=== PATIENT | female | born 1940 | race Caucasian/White ===

== ENCOUNTER 2018-04-02 11:13 | Inpatient (IN) | payer OTHER ==
[~2018-04-02] VITALS: Ht 157.5 cm; Wt 64.8 kg
[2018-04-02] MEDS ORDERED: methylPREDNISolone SOD SUCC 125 MG/2 ML VL IV ONE (11:45)
[2018-04-02] MEDS ORDERED: IPRATROPIUM BROM 0.5 MG/2.5ML INH SOL NEB ONE (11:45)
[2018-04-02] MEDS ORDERED: ALBUTEROL SULF 2.5 MG/0.5ML(0.5%) NEB SOLN NEB ONE (11:45)
[2018-04-02 11:58] LABS: Eosinophils # (auto) 0.2 uL; Lymphocytes # (auto) 2.6 uL; Monocytes # (auto) 1.5 uL
[2018-04-02 12:00] LABS: Basophils # (auto) 0 uL; Basophils % (auto) 0.2 % (0.0-2.0); Eosinophils % (auto) 1.2 % (0.0-7.0); Hematocrit 42.2 % (36.0-46.0); Hemoglobin 13.6 g/dL (12.2-16.2); Lymphocytes % (auto) 14.3 % (10.0-50.0); Mean Corpuscular Hemoglobin 27.1 pg (28.0-32.0); Mean Corpuscular Hgb Conc. 32.3 g/dL (32.0-36.0); Mean Corpuscular Volume 83.8 fL (80.0-100.0); Monocytes % (auto) 8.1 % (0.0-12.0); Neutrophils # (auto) 13.8 uL; Neutrophils % (auto) 76.2 % (37.0-80.0); Platelet Count (auto) 657 10^3/uL (140-450); Red Blood Cells 5.04 10^6/uL (4.0-5.20); Red Cell Distribution Width 17.3 % (11.8-14.3); White Blood Cell 18.2 10^3/uL (4.4-10.8)
[2018-04-02 12:17] LABS: INR 1.01 (0.9-1.15); Partial Thromboplastin Time 25.8 sec (23.78-33.04); Prothrombin Time 10.8 sec (9.27-12.13)
[2018-04-02 12:26] LABS: Albumin 2.6 g/dL (3.4-5.0); BUN/Creatinine Ratio 10.9; Bilirubin, Total 0.5 mg/dL (0.2-1.0); Calcium 8.5 mg/dL (8.5-10.1); Potassium 3.7 mmol/L (3.5-5.1); Total Protein 8.2 g/dL (6.4-8.2)
[2018-04-02] MEDS ORDERED: SODIUM CHLORIDE 0.9% 1,000 ML IV ONE (13:22)
[2018-04-02] MEDS ORDERED: ENOXAPARIN SOD 60 MG/0.6 ML SYRINGE SC ONE (13:30)
[2018-04-02] MEDS ORDERED: LEVOFLOXACIN 500MG 100 ML IV ONE (13:30)
[2018-04-02] MEDS ORDERED: SODIUM CHLORIDE 0.9% 1,000 ML IV SCH (13:37)
[2018-04-02] MEDS ORDERED: ACETAMINOPHEN 500 MG TAB PO PRN (13:45)
[2018-04-02] MEDS ORDERED: HYDROcodone-ACET 5/325MG TAB PO PRN (13:45)
[2018-04-02] MEDS ORDERED: NITROGLYCERIN 0.4 MG SL TAB SL PRN (13:45)
[2018-04-02] MEDS ORDERED: MORPHINE SULF INJ 2 MG/ML SYRINGE 1ML IV PRN ×2 (13:45)
[2018-04-02] MEDS ORDERED: LACTULOSE 20Gm/30ML SOLN PO PRN (13:45)
[2018-04-02] MEDS ORDERED: LORazepam 0.5 MG TAB PO PRN (13:45)
[2018-04-02] MEDS ORDERED: ALBUTEROL SULF 2.5 MG/0.5ML(0.5%) NEB SOLN NEB PRN (13:45)
[2018-04-02] MEDS: methylPREDNISolone SOD SUCC 40 MG/ML VL IV SCH (14:13)
[2018-04-02] MEDS: CLINDAMYCIN 600MG IV 50 ML IV SCH ×2 (15:00→21:03)
[2018-04-02 15:30] VITALS: BP 121/69
[2018-04-02 16:00] VITALS: BP 121/69
[2018-04-02] MEDS ORDERED: LEVO50TA7 PO (16:42)
[2018-04-02] MEDS ORDERED: PRE1T PO (16:42)
[2018-04-02 19:49] VITALS: BP 130/79
[2018-04-02] MEDS: SODIUM CHLORIDE 0.9% 1,000 ML IV SCH (19:51)
[2018-04-02] MEDS: IPRATROPIUM BROM 0.5 MG/2.5ML INH SOL NEB SCH (20:28)
[2018-04-02] MEDS: ALBUTEROL SULF 2.5 MG/0.5ML(0.5%) NEB SOLN NEB SCH (20:28)
[2018-04-02] MEDS: CARVEDILOL 3.125 MG TAB PO SCH (21:03)
[2018-04-03] VITALS (7 sets, daily range): BP systolic 116–147; BP diastolic 67–81
[2018-04-03 00:15] LABS: Urine Bacteria FEW /hpf (None Seen); Urine Blood Negative /uL (Negative); Urine Hyaline Cast MANY /lpf (0 - 2); Urine Mucus FEW (None Seen); Urine Specific Gravity 1.027 (1.001-1.035); Urine WBC 5 /hpf (0 - 5)
[2018-04-03] MEDS: ALBUTEROL SULF 2.5 MG/0.5ML(0.5%) NEB SOLN NEB SCH ×4 (01:39→18:45)
[2018-04-03] MEDS: IPRATROPIUM BROM 0.5 MG/2.5ML INH SOL NEB SCH ×4 (01:39→18:45)
[2018-04-03] MEDS: methylPREDNISolone SOD SUCC 40 MG/ML VL IV SCH ×2 (02:34→12:25)
[2018-04-03] MEDS: CLINDAMYCIN 600MG IV 50 ML IV SCH ×3 (05:34→21:43)
[2018-04-03] MEDS: LEVOTHYROXINE SODIUM 25 MCG TAB PO SCH (05:35)
[2018-04-03 05:43] LABS: Basophils # (auto) 0 uL; Eosinophils # (auto) 0 uL; Lymphocytes # (auto) 0.8 uL; Monocytes # (auto) 0.3 uL
[2018-04-03 05:46] LABS: Basophils % (auto) 0.2 % (0.0-2.0); Hematocrit 35.6 % (36.0-46.0); Hemoglobin 11.5 g/dL (12.2-16.2); Lymphocytes % (auto) 5.5 % (10.0-50.0); Mean Corpuscular Hemoglobin 26.7 pg (28.0-32.0); Mean Corpuscular Hgb Conc. 32.3 g/dL (32.0-36.0); Mean Corpuscular Volume 82.6 fL (80.0-100.0); Monocytes % (auto) 2.3 % (0.0-12.0); Neutrophils # (auto) 13.7 uL; Platelet Count (auto) 553 10^3/uL (140-450); Red Blood Cells 4.31 10^6/uL (4.0-5.20); Red Cell Distribution Width 17.2 % (11.8-14.3); White Blood Cell 14.9 10^3/uL (4.4-10.8)
[2018-04-03 06:24] LABS: Albumin 2.2 g/dL (3.4-5.0); BUN/Creatinine Ratio 20.8; Bilirubin, Total 0.4 mg/dL (0.2-1.0); Calcium 8.6 mg/dL (8.5-10.1); Potassium 4.6 mmol/L (3.5-5.1); Total Protein 6.9 g/dL (6.4-8.2)
[2018-04-03] MEDS: SODIUM CHLORIDE 0.9% 1,000 ML IV SCH ×2 (09:25→23:23)
[2018-04-03] MEDS ORDERED: LEVOFLOXACIN 500MG 100 ML IV SCH (10:00)
[2018-04-03] MEDS ORDERED: LEVOFLOXACIN 250MG 50 ML IV SCH (10:00)
[2018-04-03] MEDS ORDERED: ENOXAPARIN SOD 40 MG/0.4 ML SYRINGE SC SCH (10:00)
[2018-04-03] MEDS ORDERED: PANTOPRAZOLE 40 MG TAB PO SCH (10:00)
[2018-04-03] MEDS: PANTOPRAZOLE 40 MG TAB PO SCH ×2 (10:56→21:43)
[2018-04-03] MEDS: CARVEDILOL 3.125 MG TAB PO SCH ×2 (11:08→21:43)
[2018-04-03 12:06] LABS: Hemoglobin 11.4 g/dL (12.2-16.2)
[2018-04-03 12:09] LABS: Hematocrit 35.8 % (36.0-46.0)
[2018-04-03 18:43] LABS: Hemoglobin 11.7 g/dL (12.2-16.2)
[2018-04-03 18:45] LABS: Hematocrit 36.7 % (36.0-46.0)
[2018-04-03] MEDS: ATORVASTATIN 20 MG TAB PO SCH (21:43)
[2018-04-03 23:29] LABS: Hematocrit 33.6 % (36.0-46.0); Hemoglobin 10.6 g/dL (12.2-16.2)
[2018-04-04] MEDS: methylPREDNISolone SOD SUCC 40 MG/ML VL IV SCH ×2 (00:27→13:45)
[2018-04-04] MEDS: ALBUTEROL SULF 2.5 MG/0.5ML(0.5%) NEB SOLN NEB SCH ×4 (00:28→18:14)
[2018-04-04] MEDS: IPRATROPIUM BROM 0.5 MG/2.5ML INH SOL NEB SCH ×4 (00:28→18:14)
[2018-04-04 04:16] VITALS: BP 140/64
[2018-04-04] MEDS: CLINDAMYCIN 600MG IV 50 ML IV SCH (06:14)
[2018-04-04] MEDS: LEVOTHYROXINE SODIUM 25 MCG TAB PO SCH (06:15)
[2018-04-04] MEDS: PROMETHAZINE HCL 25 MG/ML 1ML IV PRN ×2 (06:48→22:23)
[2018-04-04 07:07] LABS: Hematocrit 36.1 % (36.0-46.0); Hemoglobin 11.2 g/dL (12.2-16.2); Mean Corpuscular Hemoglobin 26.1 pg (28.0-32.0); Mean Corpuscular Hgb Conc. 31.1 g/dL (32.0-36.0); Mean Corpuscular Volume 83.8 fL (80.0-100.0); Platelet Count (auto) 572 10^3/uL (140-450); White Blood Cell 23.9 10^3/uL (4.4-10.8)
[2018-04-04 07:09] LABS: BUN/Creatinine Ratio 26.3; Basophils % (manual) 0 (0.0-2.0); Blast Cells 0; Calcium 8.2 mg/dL (8.5-10.1); Eosinophils % (manual) 0 (0-7); Metamyelocytes % 0; Myelocytes % 0; Potassium 4.7 mmol/L (3.5-5.1); Promyelocytes % 0; Reactive Lymphocytes 0
[2018-04-04 07:12] LABS: Bilirubin, Total 0.2 mg/dL (0.2-1.0); Total Protein 6.3 g/dL (6.4-8.2)
[2018-04-04 08:00] VITALS: BP 146/58
[2018-04-04 08:18] LABS: Band Neutrophils % (manual) 2
[2018-04-04 08:19] LABS: Lymphocytes % (manual) 3 (10.0-50.0); Monocytes % (manual) 3 (0-12)
[2018-04-04] MEDS ORDERED: VANCOMYCIN PER PHARMACY 0 MG IV SCH (08:45)
[2018-04-04] MEDS: PANTOPRAZOLE 40 MG TAB PO SCH ×2 (09:11→22:22)
[2018-04-04] MEDS: CARVEDILOL 3.125 MG TAB PO SCH ×2 (09:11→22:21)
[2018-04-04] MEDS: VANCOMYCIN 1GM/250ML 250 ML IV SCH (09:19)
[2018-04-04] MEDS: MEROPENEM 1gm/20ml IVPUSH 20 ML IV SCH ×2 (09:38→22:21)
[2018-04-04] MEDS: AZITHROMYCIN 500MG/ 250ML 250 ML IV SCH (11:03)
[2018-04-04 12:00] VITALS: BP 124/61
[2018-04-04] MEDS: SODIUM CHLORIDE 0.9% 1,000 ML IV SCH ×2 (12:05→18:43)
[2018-04-04 16:00] VITALS: BP 129/64
[2018-04-04 20:00] VITALS: BP 134/67
[2018-04-04] MEDS: ATORVASTATIN 20 MG TAB PO SCH (22:21)
[2018-04-04] MEDS: TEMAZEPAM 15 MG CAP PO PRN (23:14)
[2018-04-05] VITALS (13 sets, daily range): BP systolic 121–199; BP diastolic 73–110
[2018-04-05] MEDS: IPRATROPIUM BROM 0.5 MG/2.5ML INH SOL NEB SCH ×4 (00:10→19:24)
[2018-04-05] MEDS: ALBUTEROL SULF 2.5 MG/0.5ML(0.5%) NEB SOLN NEB SCH ×4 (00:10→19:24)
[2018-04-05] MEDS ORDERED: LABETALOL HCL 5 MG/ML ML 20ML VIAL IV ONE (01:30)
[2018-04-05] MEDS: methylPREDNISolone SOD SUCC 40 MG/ML VL IV SCH (01:54)
[2018-04-05 05:15] LABS: Eosinophils # (auto) 0 uL; Monocytes # (auto) 0.7 uL
[2018-04-05 05:17] LABS: Basophils # (auto) 0.1 uL; Basophils % (auto) 0.3 % (0.0-2.0); Hematocrit 36.6 % (36.0-46.0); Hemoglobin 11.8 g/dL (12.2-16.2); Lymphocytes # (auto) 0.5 uL; Lymphocytes % (auto) 2.5 % (10.0-50.0); Mean Corpuscular Hemoglobin 26.8 pg (28.0-32.0); Mean Corpuscular Hgb Conc. 32.2 g/dL (32.0-36.0); Mean Corpuscular Volume 83.3 fL (80.0-100.0); Neutrophils # (auto) 20.8 uL; Neutrophils % (auto) 94.2 % (37.0-80.0); Platelet Count (auto) 602 10^3/uL (140-450); Red Blood Cells 4.39 10^6/uL (4.0-5.20); Red Cell Distribution Width 17.1 % (11.8-14.3); White Blood Cell 22.1 10^3/uL (4.4-10.8)
[2018-04-05 05:35] LABS: Calcium 8.4 mg/dL (8.5-10.1); Potassium 4.4 mmol/L (3.5-5.1)
[2018-04-05] MEDS: LEVOTHYROXINE SODIUM 25 MCG TAB PO SCH (06:36)
[2018-04-05] MEDS: PROMETHAZINE HCL 25 MG/ML 1ML IV PRN (06:37)
[2018-04-05] MEDS: AZITHROMYCIN 500MG/ 250ML 250 ML IV SCH (09:18)
[2018-04-05] MEDS: MEROPENEM 1gm/20ml IVPUSH 20 ML IV SCH (10:52)
[2018-04-05] MEDS: VANCOMYCIN 1GM/250ML 250 ML IV SCH (10:52)
[2018-04-05] MEDS: PANTOPRAZOLE 40 MG TAB PO SCH ×2 (10:53→21:11)
[2018-04-05] MEDS: CARVEDILOL 3.125 MG TAB PO SCH ×2 (11:02→21:12)
[2018-04-05] MEDS ORDERED: FLUCONAZOLE 200MG/100ML 100 ML IV ONE (12:15)
[2018-04-05] MEDS: DOXYCYCLINE 100MG/250ML 250 ML IV SCH (13:55)
[2018-04-05] MEDS: ATORVASTATIN 20 MG TAB PO SCH (21:11)
[2018-04-06] VITALS (7 sets, daily range): BP systolic 130–166; BP diastolic 68–79
[2018-04-06] MEDS: IPRATROPIUM BROM 0.5 MG/2.5ML INH SOL NEB SCH ×4 (00:39→18:57)
[2018-04-06] MEDS: ALBUTEROL SULF 2.5 MG/0.5ML(0.5%) NEB SOLN NEB SCH ×4 (00:39→18:57)
[2018-04-06] MEDS: DOXYCYCLINE 100MG/250ML 250 ML IV SCH ×2 (01:29→12:52)
[2018-04-06 05:27] LABS: Basophils # (auto) 0.1 uL; Eosinophils # (auto) 0.1 uL; Hemoglobin 12.1 g/dL (12.2-16.2); Lymphocytes # (auto) 1.7 uL; Neutrophils % (auto) 75.9 % (37.0-80.0)
[2018-04-06 05:34] LABS: Basophils % (auto) 0.6 % (0.0-2.0); Eosinophils % (auto) 0.9 % (0.0-7.0); Hematocrit 37.9 % (36.0-46.0); Lymphocytes % (auto) 11.7 % (10.0-50.0); Mean Corpuscular Hemoglobin 26.5 pg (28.0-32.0); Mean Corpuscular Hgb Conc. 31.9 g/dL (32.0-36.0); Monocytes # (auto) 1.6 uL; Monocytes % (auto) 10.9 % (0.0-12.0); Neutrophils # (auto) 10.9 uL; Platelet Count (auto) 585 10^3/uL (140-450); Red Blood Cells 4.56 10^6/uL (4.0-5.20); Red Cell Distribution Width 16.9 % (11.8-14.3); White Blood Cell 14.3 10^3/uL (4.4-10.8)
[2018-04-06 05:46] LABS: BUN/Creatinine Ratio 26.1; Calcium 8.2 mg/dL (8.5-10.1); Potassium 4.4 mmol/L (3.5-5.1)
[2018-04-06] MEDS: LEVOTHYROXINE SODIUM 25 MCG TAB PO SCH (06:48)
[2018-04-06] MEDS ORDERED: ADENOSINE 53 MG in GIVE UN-DILUTED 0 ML IV STA (08:34)
[2018-04-06] MEDS: FLUCONAZOLE 200MG/100ML 100 ML IV SCH (12:12)
[2018-04-06] MEDS: predniSONE 20 MG TAB PO SCH (12:12)
[2018-04-06] MEDS: CARVEDILOL 3.125 MG TAB PO SCH ×2 (12:13→21:34)
[2018-04-06] MEDS: PANTOPRAZOLE 40 MG TAB PO SCH ×2 (12:13→21:35)
[2018-04-06] MEDS: PROMETHAZINE HCL 25 MG/ML 1ML IV PRN (12:50)
[2018-04-06] MEDS: ATORVASTATIN 20 MG TAB PO SCH (21:35)
[2018-04-07] VITALS (7 sets, daily range): BP systolic 131–165; BP diastolic 65–100
[2018-04-07] MEDS: IPRATROPIUM BROM 0.5 MG/2.5ML INH SOL NEB SCH ×4 (00:39→19:07)
[2018-04-07] MEDS: ALBUTEROL SULF 2.5 MG/0.5ML(0.5%) NEB SOLN NEB SCH ×4 (00:39→19:07)
[2018-04-07] MEDS: DOXYCYCLINE 100MG/250ML 250 ML IV SCH (01:42)
[2018-04-07] MEDS: LEVOTHYROXINE SODIUM 25 MCG TAB PO SCH (06:13)
[2018-04-07 06:35] LABS: Hemoglobin 11.9 g/dL (12.2-16.2); White Blood Cell 15.2 10^3/uL (4.4-10.8)
[2018-04-07 06:39] LABS: Hematocrit 37.4 % (36.0-46.0); Mean Corpuscular Hemoglobin 26.4 pg (28.0-32.0); Mean Corpuscular Hgb Conc. 31.9 g/dL (32.0-36.0); Platelet Count (auto) 565 10^3/uL (140-450); Red Blood Cells 4.51 10^6/uL (4.0-5.20); Red Cell Distribution Width 16.3 % (11.8-14.3)
[2018-04-07 06:52] LABS: BUN/Creatinine Ratio 31.4; Basophils % (manual) 0 (0.0-2.0); Blast Cells 0; Calcium 8.3 mg/dL (8.5-10.1); Eosinophils % (manual) 0 (0-7); Metamyelocytes % 0; Myelocytes % 0; Potassium 4.2 mmol/L (3.5-5.1); Promyelocytes % 0; Reactive Lymphocytes 0
[2018-04-07 08:05] LABS: Band Neutrophils % (manual) 1; Lymphocytes % (manual) 9 (10.0-50.0); Monocytes % (manual) 8 (0-12)
[2018-04-07] MEDS: FLUCONAZOLE 200MG/100ML 100 ML IV SCH (10:22)
[2018-04-07] MEDS: PANTOPRAZOLE 40 MG TAB PO SCH ×2 (10:22→21:28)
[2018-04-07] MEDS: predniSONE 20 MG TAB PO SCH (10:22)
[2018-04-07] MEDS: CARVEDILOL 3.125 MG TAB PO SCH ×2 (10:22→21:27)
[2018-04-07] MEDS: DOXYCYCLINE 100 MG TAB/CAP PO SCH (21:28)
[2018-04-07] MEDS: ATORVASTATIN 20 MG TAB PO SCH (21:28)
[2018-04-07] MEDS: TEMAZEPAM 15 MG CAP PO PRN (22:23)
[2018-04-08] VITALS (7 sets, daily range): BP systolic 134–159; BP diastolic 64–76
[2018-04-08 06:06] LABS: Hematocrit 35.4 % (36.0-46.0); Hemoglobin 11.7 g/dL (12.2-16.2); Mean Corpuscular Hemoglobin 27.3 pg (28.0-32.0); Mean Corpuscular Volume 82.6 fL (80.0-100.0); Platelet Count (auto) 554 10^3/uL (140-450); Red Blood Cells 4.29 10^6/uL (4.0-5.20); Red Cell Distribution Width 16.6 % (11.8-14.3); White Blood Cell 16.5 10^3/uL (4.4-10.8)
[2018-04-08 06:13] LABS: BUN/Creatinine Ratio 35.8; Calcium 8.1 mg/dL (8.5-10.1); Potassium 4.6 mmol/L (3.5-5.1)
[2018-04-08 06:18] LABS: Band Neutrophils % (manual) 0; Basophils % (manual) 0 (0.0-2.0); Blast Cells 0; Eosinophils % (manual) 0 (0-7); Metamyelocytes % 0; Myelocytes % 0; Promyelocytes % 0; Reactive Lymphocytes 0
[2018-04-08] MEDS: LEVOTHYROXINE SODIUM 25 MCG TAB PO SCH (06:24)
[2018-04-08] MEDS: ALBUTEROL SULF 2.5 MG/0.5ML(0.5%) NEB SOLN NEB SCH ×4 (06:31→19:18)
[2018-04-08] MEDS: IPRATROPIUM BROM 0.5 MG/2.5ML INH SOL NEB SCH ×4 (06:31→19:18)
[2018-04-08 06:49] LABS: Lymphocytes % (manual) 7 (10.0-50.0); Monocytes % (manual) 4 (0-12)
[2018-04-08] MEDS: FLUCONAZOLE 200MG/100ML 100 ML IV SCH (09:08)
[2018-04-08] MEDS: DOXYCYCLINE 100 MG TAB/CAP PO SCH ×2 (09:09→21:22)
[2018-04-08] MEDS: PANTOPRAZOLE 40 MG TAB PO SCH ×2 (09:10→21:21)
[2018-04-08] MEDS: CARVEDILOL 3.125 MG TAB PO SCH ×2 (09:10→21:21)
[2018-04-08] MEDS ORDERED: predniSONE 20 MG TAB PO SCH (10:00)
[2018-04-08] MEDS: ATORVASTATIN 20 MG TAB PO SCH (21:21)
[2018-04-08] MEDS: TEMAZEPAM 15 MG CAP PO PRN (21:27)
[2018-04-09] MEDS: IPRATROPIUM BROM 0.5 MG/2.5ML INH SOL NEB SCH ×4 (01:10→18:34)
[2018-04-09] MEDS: ALBUTEROL SULF 2.5 MG/0.5ML(0.5%) NEB SOLN NEB SCH ×4 (01:10→18:34)
[2018-04-09 05:00] VITALS: BP 152/77
[2018-04-09 05:27] LABS: Basophils # (auto) 0.1 uL; Basophils % (auto) 0.3 % (0.0-2.0); Eosinophils # (auto) 0.1 uL; Eosinophils % (auto) 0.7 % (0.0-7.0); Lymphocytes # (auto) 1.8 uL; Nucleated Red Blood Cells % 0.1 %; Platelet Count (auto) 528 10^3/uL (140-450); White Blood Cell 15.5 10^3/uL (4.4-10.8)
[2018-04-09 05:29] LABS: Hematocrit 37.5 % (36.0-46.0); Hemoglobin 12.3 g/dL (12.2-16.2); Lymphocytes % (auto) 11.3 % (10.0-50.0); Mean Corpuscular Hemoglobin 27.1 pg (28.0-32.0); Mean Corpuscular Hgb Conc. 32.7 g/dL (32.0-36.0); Mean Corpuscular Volume 82.9 fL (80.0-100.0); Monocytes # (auto) 1.4 uL; Monocytes % (auto) 8.8 % (0.0-12.0); Neutrophils # (auto) 12.2 uL; Neutrophils % (auto) 78.9 % (37.0-80.0); Red Blood Cells 4.52 10^6/uL (4.0-5.20); Red Cell Distribution Width 17.1 % (11.8-14.3)
[2018-04-09 05:51] LABS: BUN/Creatinine Ratio 37.4; Calcium 8.3 mg/dL (8.5-10.1); Potassium 4.3 mmol/L (3.5-5.1)
[2018-04-09] MEDS: LEVOTHYROXINE SODIUM 25 MCG TAB PO SCH (06:17)
[2018-04-09 08:00] VITALS: BP 148/69
[2018-04-09] MEDS ORDERED: IOHEXOL 350 MG/ML 100ML IJ ONE (08:26)
[2018-04-09] MEDS ORDERED: LIDOCAINE 2% (LOCAL ANESTH.) PF 5ml SDV ONE (08:26)
[2018-04-09] MEDS ORDERED: SODIUM CHL 0.9% 50 ML ONE ×2 (08:50→11:12)
[2018-04-09] MEDS ORDERED: MIDAZOLAM HCL 1MG/1ML-2 ML VIAL ONE (08:50)
[2018-04-09] MEDS ORDERED: ANGIOMAX 250 MG VIAL IV ONE ×2 (08:50→11:12)
[2018-04-09] MEDS ORDERED: fentaNYL CITRATE 100 MCG/2 ML VL ONE (08:50)
[2018-04-09 09:00] VITALS: BP 148/69
[2018-04-09] MEDS ORDERED: EPTIFIBATIDE INJ (2MG/ML) 10ML VIAL IV ONE (09:55)
[2018-04-09] MEDS ORDERED: TICAGRELOR 90 MG TAB ONE (10:58)
[2018-04-09] MEDS ORDERED: ONDANSETRON HCL 4 MG/2 ML VIAL ONE (11:29)
[2018-04-09] MEDS ORDERED: LEVOFLOXACIN 500 MG TAB PO ONE (12:00)
[2018-04-09] MEDS ORDERED: ACETAMINOPHEN 500 MG TAB PO PRN (12:15)
[2018-04-09] MEDS ORDERED: HYDROcodone-ACET 5/325MG TAB PO PRN (12:15)
[2018-04-09] MEDS: CARVEDILOL 3.125 MG TAB PO SCH ×2 (13:09→21:14)
[2018-04-09] MEDS: predniSONE 20 MG TAB PO SCH (13:09)
[2018-04-09] MEDS: FLUCONAZOLE 100 MG TAB PO SCH (13:10)
[2018-04-09] MEDS: PANTOPRAZOLE 40 MG TAB PO SCH ×2 (13:10→21:15)
[2018-04-09 17:00] VITALS: BP 158/73
[2018-04-09 20:00] VITALS: BP 161/70
[2018-04-09] MEDS: ATORVASTATIN 20 MG TAB PO SCH (21:15)
[2018-04-09 22:00] VITALS: BP 161/70
[2018-04-10] MEDS: IPRATROPIUM BROM 0.5 MG/2.5ML INH SOL NEB SCH ×5 (01:34→23:22)
[2018-04-10] MEDS: ALBUTEROL SULF 2.5 MG/0.5ML(0.5%) NEB SOLN NEB SCH ×5 (01:34→23:22)
[2018-04-10 05:00] VITALS: BP 138/72
[2018-04-10 05:59] LABS: Hemoglobin 11.8 g/dL (12.2-16.2)
[2018-04-10 06:03] LABS: Hematocrit 36.5 % (36.0-46.0); Mean Corpuscular Hemoglobin 26.5 pg (28.0-32.0); Mean Corpuscular Hgb Conc. 32.4 g/dL (32.0-36.0); Platelet Count (auto) 483 10^3/uL (140-450); Red Blood Cells 4.46 10^6/uL (4.0-5.20); Red Cell Distribution Width 17.1 % (11.8-14.3); White Blood Cell 17.3 10^3/uL (4.4-10.8)
[2018-04-10 06:11] LABS: BUN/Creatinine Ratio 30.4; Calcium 8.2 mg/dL (8.5-10.1); Potassium 4.5 mmol/L (3.5-5.1)
[2018-04-10] MEDS: LEVOTHYROXINE SODIUM 25 MCG TAB PO SCH (06:15)
[2018-04-10 06:34] LABS: Band Neutrophils % (manual) 0; Basophils % (manual) 0 (0.0-2.0); Blast Cells 0; Eosinophils % (manual) 0 (0-7); Metamyelocytes % 0; Myelocytes % 0; Promyelocytes % 0; Reactive Lymphocytes 0
[2018-04-10 07:01] LABS: Lymphocytes % (manual) 10 (10.0-50.0); Monocytes % (manual) 12 (0-12)
[2018-04-10 08:00] VITALS: BP 148/74
[2018-04-10 08:26] VITALS: BP 148/74
[2018-04-10] MEDS ORDERED: LEVOFLOXACIN 500 MG TAB PO SCH (10:00)
[2018-04-10] MEDS: FLUCONAZOLE 100 MG TAB PO SCH (10:05)
[2018-04-10] MEDS: PANTOPRAZOLE 40 MG TAB PO SCH ×2 (10:05→22:03)
[2018-04-10] MEDS: predniSONE 20 MG TAB PO SCH (10:05)
[2018-04-10] MEDS: CARVEDILOL 3.125 MG TAB PO SCH ×2 (10:06→22:04)
[2018-04-10] MEDS ORDERED: ASPirin 81 mg TAB PO ONE (12:30)
[2018-04-10] MEDS ORDERED: MORPHINE SULF INJ 2 MG/ML SYRINGE 1ML IV PRN ×2 (12:30)
[2018-04-10] MEDS ORDERED: LORazepam 0.5 MG TAB PO PRN (12:30)
[2018-04-10] MEDS ORDERED: CLOPIDOGREL BISULFATE 75 MG TAB PO ONE (12:30)
[2018-04-10] MEDS ORDERED: FUROSEMIDE 20 MG/2 ML VIAL IV ONE (12:45)
[2018-04-10] MEDS: ONDANSETRON HCL 4 MG/2 ML VIAL IV PRN (13:06)
[2018-04-10 16:08] VITALS: BP_SYST 117; BP_SYST 147; BP_DIAS 61; BP_DIAS 80
[2018-04-10 20:00] VITALS: BP 145/69
[2018-04-10 21:52] VITALS: BP 145/69
[2018-04-10] MEDS: ATORVASTATIN 20 MG TAB PO SCH (22:03)
[2018-04-11 05:00] VITALS: BP 148/69
[2018-04-11 05:58] LABS: Red Cell Distribution Width 16.9 % (11.8-14.3)
[2018-04-11 06:00] LABS: Hematocrit 37.5 % (36.0-46.0); Hemoglobin 12.2 g/dL (12.2-16.2); Mean Corpuscular Hemoglobin 26.8 pg (28.0-32.0); Mean Corpuscular Hgb Conc. 32.4 g/dL (32.0-36.0); Mean Corpuscular Volume 82.6 fL (80.0-100.0); Platelet Count (auto) 506 10^3/uL (140-450); Red Blood Cells 4.54 10^6/uL (4.0-5.20)
[2018-04-11] MEDS: LEVOTHYROXINE SODIUM 25 MCG TAB PO SCH (06:06)
[2018-04-11 06:20] LABS: Calcium 8.7 mg/dL (8.5-10.1); Potassium 4.5 mmol/L (3.5-5.1)
[2018-04-11] MEDS: IPRATROPIUM BROM 0.5 MG/2.5ML INH SOL NEB SCH ×3 (07:07→19:31)
[2018-04-11] MEDS: ALBUTEROL SULF 2.5 MG/0.5ML(0.5%) NEB SOLN NEB SCH ×3 (07:07→19:31)
[2018-04-11 07:29] LABS: Basophils % (manual) 0 (0.0-2.0); Blast Cells 0; Metamyelocytes % 0; Myelocytes % 0; Promyelocytes % 0; Reactive Lymphocytes 0
[2018-04-11 08:00] VITALS: BP 143/74
[2018-04-11 09:00] VITALS: BP 143/74
[2018-04-11 09:40] LABS: Band Neutrophils % (manual) 1; Eosinophils % (manual) 2 (0-7); Lymphocytes % (manual) 5 (10.0-50.0); Monocytes % (manual) 8 (0-12)
[2018-04-11] MEDS ORDERED: LEVOFLOXACIN 500MG 100 ML IV SCH (10:00)
[2018-04-11] MEDS: ASPirin 81 mg TAB PO SCH (10:10)
[2018-04-11] MEDS: ONDANSETRON HCL 4 MG/2 ML VIAL IV PRN (10:10)
[2018-04-11] MEDS: PANTOPRAZOLE 40 MG TAB PO SCH ×2 (10:10→21:26)
[2018-04-11] MEDS: CLOPIDOGREL BISULFATE 75 MG TAB PO SCH (10:11)
[2018-04-11] MEDS: FLUCONAZOLE 100 MG TAB PO SCH (10:11)
[2018-04-11] MEDS: predniSONE 20 MG TAB PO SCH (10:11)
[2018-04-11] MEDS: CARVEDILOL 3.125 MG TAB PO SCH ×2 (10:11→21:28)
[2018-04-11 13:00] VITALS: BP 127/77
[2018-04-11 17:00] VITALS: BP 132/92
[2018-04-11] MEDS: ATORVASTATIN 20 MG TAB PO SCH (21:26)
[2018-04-11 22:00] VITALS: BP 159/78
[2018-04-11] MEDS: TEMAZEPAM 15 MG CAP PO PRN (22:57)
[2018-04-12] VITALS (7 sets, daily range): BP systolic 119–152; BP diastolic 62–76
[2018-04-12] MEDS: IPRATROPIUM BROM 0.5 MG/2.5ML INH SOL NEB SCH ×4 (01:23→19:33)
[2018-04-12] MEDS: ALBUTEROL SULF 2.5 MG/0.5ML(0.5%) NEB SOLN NEB SCH ×4 (01:23→19:33)
[2018-04-12] MEDS: ONDANSETRON HCL 4 MG/2 ML VIAL IV PRN (04:00)
[2018-04-12 05:20] LABS: Mean Corpuscular Hemoglobin 26.4 pg (28.0-32.0); Mean Corpuscular Hgb Conc. 31.9 g/dL (32.0-36.0)
[2018-04-12 05:22] LABS: Hematocrit 37.1 % (36.0-46.0); Hemoglobin 11.8 g/dL (12.2-16.2); Mean Corpuscular Volume 82.8 fL (80.0-100.0); Platelet Count (auto) 465 10^3/uL (140-450); Red Blood Cells 4.48 10^6/uL (4.0-5.20); Red Cell Distribution Width 17.3 % (11.8-14.3); White Blood Cell 16.1 10^3/uL (4.4-10.8)
[2018-04-12 05:38] LABS: Calcium 8.7 mg/dL (8.5-10.1); Potassium 4.4 mmol/L (3.5-5.1)
[2018-04-12 05:40] LABS: BUN/Creatinine Ratio 26.9
[2018-04-12 06:13] LABS: Basophils % (manual) 0 (0.0-2.0); Blast Cells 0; Metamyelocytes % 0; Myelocytes % 0; Promyelocytes % 0; Reactive Lymphocytes 0
[2018-04-12] MEDS: LEVOTHYROXINE SODIUM 25 MCG TAB PO SCH (06:26)
[2018-04-12 08:36] LABS: Band Neutrophils % (manual) 1; Eosinophils % (manual) 2 (0-7); Lymphocytes % (manual) 16 (10.0-50.0); Monocytes % (manual) 6 (0-12)
[2018-04-12] MEDS: DOXYCYCLINE 100 MG TAB/CAP PO SCH ×2 (09:41→22:06)
[2018-04-12] MEDS: FLUCONAZOLE 100 MG TAB PO SCH (09:41)
[2018-04-12] MEDS: CARVEDILOL 3.125 MG TAB PO SCH ×2 (09:42→22:07)
[2018-04-12] MEDS: predniSONE 20 MG TAB PO SCH (09:42)
[2018-04-12] MEDS: CLOPIDOGREL BISULFATE 75 MG TAB PO SCH (09:42)
[2018-04-12] MEDS: ASPirin 81 mg TAB PO SCH (09:42)
[2018-04-12] MEDS: PANTOPRAZOLE 40 MG TAB PO SCH ×2 (09:42→22:06)
[2018-04-12] MEDS: ATORVASTATIN 20 MG TAB PO SCH (22:06)
[2018-04-12] MEDS: TEMAZEPAM 15 MG CAP PO PRN (23:28)
[2018-04-13] MEDS: IPRATROPIUM BROM 0.5 MG/2.5ML INH SOL NEB SCH ×3 (01:41→11:44)
[2018-04-13] MEDS: ALBUTEROL SULF 2.5 MG/0.5ML(0.5%) NEB SOLN NEB SCH ×3 (01:41→11:44)
[2018-04-13 05:27] VITALS: BP 141/67
[2018-04-13 06:10] LABS: White Blood Cell 15.4 10^3/uL (4.4-10.8)
[2018-04-13 06:12] LABS: Hematocrit 36.2 % (36.0-46.0); Hemoglobin 11.9 g/dL (12.2-16.2); Mean Corpuscular Hgb Conc. 32.7 g/dL (32.0-36.0); Mean Corpuscular Volume 82.3 fL (80.0-100.0); Platelet Count (auto) 474 10^3/uL (140-450); Red Cell Distribution Width 16.8 % (11.8-14.3)
[2018-04-13 06:19] LABS: Basophils % (manual) 0 (0.0-2.0); Blast Cells 0; Eosinophils % (manual) 0 (0-7); Metamyelocytes % 0; Myelocytes % 0; Promyelocytes % 0; Reactive Lymphocytes 0
[2018-04-13 06:22] LABS: BUN/Creatinine Ratio 29.1; Calcium 8.5 mg/dL (8.5-10.1); Potassium 4.9 mmol/L (3.5-5.1)
[2018-04-13] MEDS: LEVOTHYROXINE SODIUM 25 MCG TAB PO SCH (06:28)
[2018-04-13 07:52] LABS: Band Neutrophils % (manual) 2; Lymphocytes % (manual) 14 (10.0-50.0); Monocytes % (manual) 6 (0-12)
[2018-04-13 09:00] VITALS: BP 139/66
[2018-04-13] MEDS: ASPirin 81 mg TAB PO SCH (09:28)
[2018-04-13] MEDS: predniSONE 20 MG TAB PO SCH (09:28)
[2018-04-13] MEDS: CLOPIDOGREL BISULFATE 75 MG TAB PO SCH (09:29)
[2018-04-13] MEDS: PANTOPRAZOLE 40 MG TAB PO SCH (09:29)
[2018-04-13] MEDS: CARVEDILOL 3.125 MG TAB PO SCH (09:29)
[2018-04-13] MEDS: FLUCONAZOLE 100 MG TAB PO SCH (09:29)
[2018-04-13] MEDS: DOXYCYCLINE 100 MG TAB/CAP PO SCH (09:30)
[2018-04-13 13:00] VITALS: BP 119/66
[2018-04-13 14:39] VITALS: BP 119/66
== END 2018-04-13 16:45 | disposition home or self-care (01) | DRG 853 ==
LOC: ER 11:13 → TELE 11:14 → DOU IN ICU 15:10 → WEST WING 04-06 18:10 → TELE-WESTW 04-06 18:28
PROVIDERS: ADMIT Internal Medicine; ATTEND Internal Medicine
PROC: 4A023N8 Measurement of Cardiac Sampling and Pressure, Bilateral, Percutaneous Approach (ICD-10-PCS; principal; 2018-04-09)
PROC: 027137Z Dilation of Coronary Artery, Two Arteries with Four or More Drug-eluting Intraluminal Devices, Percutaneous Approach (ICD-10-PCS; 2018-04-09)
PROC: B2111ZZ Fluoroscopy of Multiple Coronary Arteries using Low Osmolar Contrast (ICD-10-PCS; 2018-04-09)
PROC: B2151ZZ Fluoroscopy of Left Heart using Low Osmolar Contrast (ICD-10-PCS; 2018-04-09)
DX: A41.2 Sepsis due to unspecified staphylococcus (principal); J96.20 Acute and chronic respiratory failure, unspecified whether with hypoxia or hypercapnia; I21.4 Non-ST elevation (NSTEMI) myocardial infarction; J15.20 Pneumonia due to staphylococcus, unspecified; N39.0 Urinary tract infection, site not specified; I50.32 Chronic diastolic (congestive) heart failure; J44.0 Chronic obstructive pulmonary disease with (acute) lower respiratory infection; I08.0 Rheumatic disorders of both mitral and aortic valves; E03.9 Hypothyroidism, unspecified; N18.3 Chronic kidney disease, stage 3 (moderate); I25.10 Atherosclerotic heart disease of native coronary artery without angina pectoris; J84.112 Idiopathic pulmonary fibrosis; K76.0 Fatty (change of) liver, not elsewhere classified; K80.20 Calculus of gallbladder without cholecystitis without obstruction; M06.9 Rheumatoid arthritis, unspecified; Z79.02 Long term (current) use of antithrombotics/antiplatelets; Z79.82 Long term (current) use of aspirin; Z85.41 Personal history of malignant neoplasm of cervix uteri; Z87.891 Personal history of nicotine dependence; Z90.710 Acquired absence of both cervix and uterus; Z99.81 Dependence on supplemental oxygen; Z79.899 Other long term (current) drug therapy; Z88.1 Allergy status to other antibiotic agents; Z88.0 Allergy status to penicillin
CPT/HCPCS: 36415; 51702; 71045; 71250; 78452; 80048; 80053; 80061; 81001; 82270; 82378; 82550; 83880; 84443; 84484; 85007; 85014; 85018; 85025; 85027; 85045; 85379; 85610; 85652; 85730; 86141; 87040; 87070; 87077; 87081; 87086; 87186; 87205; 92928; 93005; 93017; 93306; 93460; 93566; 94640; 96365; 96372; 96375; 96379; 97110; 97116; 97163; 97530; 99152; 99153; 99291; A6257; C1874; J0153; J1450; J1956; J2001; J2250; J2405; J3490

== ENCOUNTER 2019-08-17 14:13 | Emergency (ER) | payer OTHER ==
[~2019-08-17] VITALS: Ht 162.6 cm; Wt 31.3 kg
[~2019-08-17 14:13] MED LIST: CARV6.2551 PO; CLOP75TA28 PO; LEVO50TA7 PO; PANT40TA2 PO; PRE1T PO
[2019-08-17 15:49] LABS: Eosinophils # (auto) 0 uL; Hemoglobin 9.8 g/dL (12.2-16.2)
[2019-08-17 15:52] LABS: Red Cell Distribution Width 17.3 % (11.8-14.3)
[2019-08-17 15:56] LABS: Basophils # (auto) 0.2 uL; Eosinophils % (auto) 0.1 % (0.0-7.0)
[2019-08-17 15:57] LABS: Basophils % (auto) 1.4 % (0.0-2.0); Hematocrit 31.6 % (36.0-46.0); Lymphocytes # (auto) 0.9 uL; Lymphocytes % (auto) 5.9 % (10.0-50.0); Mean Corpuscular Hemoglobin 23.4 pg (28.0-32.0); Mean Corpuscular Hgb Conc. 31.1 g/dL (32.0-36.0); Mean Corpuscular Volume 75.4 fL (80.0-100.0); Monocytes # (auto) 0.4 uL; Monocytes % (auto) 2.7 % (0.0-12.0); Neutrophils # (auto) 13.3 uL; Neutrophils % (auto) 89.9 % (37.0-80.0); Nucleated Red Blood Cells % 0.1 %; Platelet Count (auto) 520 10^3/uL (140-450); Red Blood Cells 4.19 10^6/uL (4.0-5.20); White Blood Cell 14.8 10^3/uL (4.4-10.8)
[2019-08-17 16:04] LABS: INR 0.97 (0.9-1.15); Partial Thromboplastin Time 21.7 sec (23.64-32.05)
[2019-08-17 16:09] LABS: Alanine Aminotransferase 12 U/L (13-56); Albumin 2.9 g/dL (3.4-5.0); Anion Gap 7 (5-15); Aspartate Aminotransferase 14 U/L (15-37); BUN/Creatinine Ratio 16.5; Blood Urea Nitrogen 20 mg/dL (7-18); Calcium 8.7 mg/dL (8.5-10.1); Carbon Dioxide 24 mmol/L (21-32); Chloride 109 mmol/L (98-107); GFR African American 56 mL/min; GFR Non-African American 46 mL/min; Glucose 113 mg/dL (74-106); Magnesium 2.2 mg/dL (1.6-2.6); Potassium 4.8 mmol/L (3.5-5.1); Sodium 140 mmol/L (136-145)
[2019-08-17 16:14] LABS: Alkaline Phosphatase 59 U/L (45-117); Bilirubin, Total 0.2 mg/dL (0.2-1.0); Total Protein 7.1 g/dL (6.4-8.2)
[2019-08-17] MEDS ORDERED: TETANUS-DIPTH-ACEL PERTUSSIS 0.5ML SYRG IM ONE (16:15)
[2019-08-17] MEDS ORDERED: LIDOCAINE 1% HCL (LOCAL ANESTH.) INJ 20ML MDV IJ ONE (17:15)
[2019-08-17] MEDS ORDERED: NEOMYCIN-BACITRACIN-POLYM 15GM TOP OINT TOP ONE (18:13)
[2019-08-17 20:05] VITALS: BP 180/58
== END 2019-08-17 21:01 | disposition home or self-care (01) ==
LOC: ER 14:13 → EDBD 14:13 → ER 21:01
DX: S51.012A Laceration without foreign body of left elbow, initial encounter (principal); S00.83XA Contusion of other part of head, initial encounter; M19.90 Unspecified osteoarthritis, unspecified site; I25.10 Atherosclerotic heart disease of native coronary artery without angina pectoris; E78.5 Hyperlipidemia, unspecified; I10 Essential (primary) hypertension; Z88.0 Allergy status to penicillin; Z88.1 Allergy status to other antibiotic agents; W19.XXXA Unspecified fall, initial encounter; Y93.89 Activity, other specified; Y92.89 Other specified places as the place of occurrence of the external cause; Y99.8 Other external cause status
CPT/HCPCS: 12002; 36415; 70450; 71045; 73080; 80053; 82962; 83735; 84484; 85025; 85610; 85730; 90471; 90715; 93005; 99284; J2001

== ENCOUNTER 2020-04-18 16:00 | Emergency (ER) | payer OTHER ==
[~2020-04-18] VITALS: Ht 162.6 cm; Wt 65.8 kg
[2020-04-18] MEDS ORDERED: SODIUM CHLORIDE 0.9% 1,000 ML IV ONE (16:22)
[2020-04-18] MEDS ORDERED: SODIUM CHLORIDE 0.9% 1,000 ML IVB ONE (16:22)
[2020-04-18] MEDS ORDERED: ONDANSETRON HCL 4 MG/2 ML VIAL IV ONE (16:30)
[2020-04-18 17:11] LABS: Basophils # (auto) 0.1 10 ^3/uL (0-0.2); Basophils % (auto) 0.4 % (0.0-2.0); Eosinophils # (auto) 0 10 ^3/uL (0-0.8); Eosinophils % (auto) 0.1 % (0.0-7.0); Hematocrit 47.3 % (36.0-46.0); Hemoglobin 14.8 g/dL (12.2-16.2); Lymphocytes # (auto) 0.9 10 ^3/uL (0.4-5.4); Lymphocytes % (auto) 4.7 % (10.0-50.0); Mean Corpuscular Hemoglobin 27.1 pg (28.0-32.0); Mean Corpuscular Hgb Conc. 31.3 g/dL (32.0-36.0); Mean Corpuscular Volume 86.7 fL (80.0-100.0); Monocytes # (auto) 0.6 10 ^3/uL (0-1.3); Neutrophils # (auto) 17.1 10 ^3/uL (1.6-8.6); Neutrophils % (auto) 91.8 % (37.0-80.0); Platelet Count (auto) 392 10^3/uL (140-450); Red Blood Cells 5.46 10^6/uL (4.0-5.20); White Blood Cell 18.6 10^3/uL (4.4-10.8)
[2020-04-18 17:24] LABS: Albumin 3.3 g/dL (3.4-5.0); Potassium 4.4 mmol/L (3.5-5.1)
[2020-04-18 17:28] LABS: BUN/Creatinine Ratio 19.3; Bilirubin, Total 0.5 mg/dL (0.2-1.0); Total Protein 7.6 g/dL (6.4-8.2)
[2020-04-18 17:35] LABS: Magnesium 2.5 mg/dL (1.6-2.6)
[2020-04-18] MEDS ORDERED: cefTRIAXone 1GM/50ML D5W 50 ML IV ONE (18:00)
[2020-04-18] MEDS ORDERED: LABETALOL HCL 5 MG/ML 4ML SYRINGE IV ONE (18:15)
[2020-04-18 18:23] LABS: Urine Bacteria NONE SEEN /hpf (None Seen); Urine Blood 1+ /uL (Negative); Urine Specific Gravity 1.009 (1.001-1.035); Urine WBC <1 /hpf (0 - 5)
[2020-04-18] MEDS ORDERED: ONDANSETRON HCL 4 MG/2 ML VIAL IV PRN (21:00)
[2020-04-18] MEDS ORDERED: ACETAMINOPHEN 325 MG TAB PO PRN (21:00)
[2020-04-18] MEDS ORDERED: LOPERAMIDE HCL 2 MG CAP PO PRN (21:00)
[2020-04-18] MEDS ORDERED: TEMAZEPAM 15 MG CAP PO PRN (21:00)
[2020-04-18] MEDS ORDERED: CARVEDILOL 3.125 MG TAB PO SCH (22:00)
[2020-04-18 23:30] VITALS: BP 186/88
[2020-04-19] MEDS ORDERED: LEVOTHYROXINE SODIUM 50 MCG TAB PO SCH (07:00)
[2020-04-19] MEDS ORDERED: predniSONE 5 MG TAB PO SCH (10:00)
[2020-04-19] MEDS ORDERED: PANTOPRAZOLE 40 MG TAB PO SCH (10:00)
[2020-04-19] MEDS ORDERED: CLOPIDOGREL BISULFATE 75 MG TAB PO SCH (10:00)
== END 2020-04-19 00:47 | disposition home or self-care (01) ==
LOC: EDBD 16:00 → ER 16:00
DX: J84.10 Pulmonary fibrosis, unspecified (principal); J18.1 Lobar pneumonia, unspecified organism; N28.9 Disorder of kidney and ureter, unspecified; I25.10 Atherosclerotic heart disease of native coronary artery without angina pectoris; I38 Endocarditis, valve unspecified; M19.90 Unspecified osteoarthritis, unspecified site; K21.9 Gastro-esophageal reflux disease without esophagitis; I10 Essential (primary) hypertension; Z98.61 Coronary angioplasty status; Z79.899 Other long term (current) drug therapy; Z88.1 Allergy status to other antibiotic agents; Z88.0 Allergy status to penicillin
CPT/HCPCS: 36415; 71046; 80053; 81001; 83735; 84443; 84484; 85025; 87040; 93005; 96361; 96365; 96375; 99285; J0696; J2405; J3490; J7030